=== PATIENT | male | born 1980 ===

== ENCOUNTER → 2018-07-12 | Outpatient (REF) | payer OTHER ==
[2015-01-17 08:37] VITALS: BMI 35.0
[~2018-07-12] MED LIST: HYDR-653 PO; IBUP-56 PO; KET10 PO; METH-543 PO; OSE75 PO; PRAZ5CAP16 PO; ROBC PO; SERT-181 PO; TRAZ50TA34 PO
[2018-07-12 15:09] LABS: PLATELET COUNT, AUTOMATED 362 K/uL (150-450)
== END ==
PROVIDERS: ATTEND Family Medicine
DX: R07.9 Chest pain, unspecified (principal); R05 Cough
CPT/HCPCS: 82040; 82247; 82310; 82374; 82435; 82565; 82947; 84075; 84132; 84155; 84295; 84450; 84460; 84520; 85025; 85379